=== PATIENT | female | born 1975 | race Caucasian/White ===

== ENCOUNTER 2022-03-31 16:00 | Emergency (ER) | payer BC ==
[~2022-03-31] VITALS: Ht 154.9 cm; Wt 51.0 kg
[2022-03-31 16:21] VITALS: BP 125/79
--- NOTE | 2022-03-31 16:40 | PHYS DOC ---
Past History Past Surgical History: Other Additional Past Surgical Histo: Cataracts (BHARATH COWART MD) Alcohol Use: None (BHARATH COWART MD) Adult General Chief Complaint Chief Complaint: ALTERED MENTAL STATUS HPI HPI Patient is a 47 year old female who presents to the emergency department for evaluation of altered mental status. The patient was brought by her father due to concern for confusion. The patient currently denies any complaints and states that "I don't know why I am here." The patient's father expressed concern that the patient has been confused. She was with her significant other last night which the patient confirms. She states that they ate dinner and watch the movie. She states she came back to her parents home this morning at 0400. Patient denied any use of drugs or alcohol. The patient again states "I do not know why I am here." The patient's parents were then interviewed. They state that over the past 6 months the patient has been having worsening symptoms of confusion. They state that the patient is very repetitive in her speech and asks the same question to them multiple times. The patient recently lost her job 6 months ago and they state that they think this has factored into her recent change in mental status. They state they have been trying to secure an outpatient psychiatric services but states that currently they are on a waiting list to have the patient [facility]. Mother states that the patient at times will pull her hair out and will smack her head when she is upset, however they do state that the patient does not voice any thoughts of suicide and has never voiced any physical threats or harm to either of her parents. They state because this has been going on so long they have become very upset with her behavior and thus have brought her to the emergency d epartment today for evaluation to see if she is in need of inpatient psychiatric care. (BHARATH COWART MD) Review of Systems Review of Systems Constitutional: Denies fever or chills [] Eyes: Denies change in visual acuity, redness, or eye pain [] HENT: Denies nasal congestion or sore throat [] Respiratory: Denies cough or shortness of breath [] Cardiovascular: Denies chest pain or edema [] GI: Denies abdominal pain, nausea, vomiting, bloody stools or diarrhea [] : Denies dysuria or hematuria [] Musculoskeletal: Denies back pain or joint pain [] Integument: Denies rash or skin lesions [] Neurologic: Denies headache, focal weakness or sensory changes [] All other systems were reviewed and found to be within normal limits, except as documented in this note. (BHARATH COWART MD) Physical Exam Physical Exam Constitutional: Alert, afebrile, no acute distress. [] HENT: Normocephalic, atraumatic, bilateral external ears normal, oropharynx moist, no oral exudates, nose normal. [] Eyes: PERRLA, EOMI, conjunctiva normal, no discharge. [] Neck: Normal range of motion, no tenderness, supple, no stridor. [] Cardiovascular:Heart rate regular rhythm, no murmur [] Lungs & Thorax: Bilateral breath sounds clear to auscultation [] Abdomen: Bowel sounds normal, soft, no tenderness, no masses, no pulsatile masses. [] Skin: Warm, dry, no erythema, no rash. [] Back: No tenderness, no CVA tenderness. [] Extremities: No tenderness, no cyanosis, no clubbing, ROM intact, no edema. [] Neurologic: Alert and oriented X 3, normal motor function, normal sensory function, no focal deficits noted. [] Psychologic: Affect flat, intermittent phrase repetition "I do not know why I am here," judgement normal, mood normal, cooperative, denies suicidal or homicidal ideation. [] (BHARATH COWART MD) Current Patient Data Vital Signs Vital Signs Date Time Temp Pulse Resp B/P (MAP) Pulse Ox O2 Delivery O2 Flow Rate FiO2 03/31/22 16:21 97.8 109 16 125/79 (94) 98 Room Air Lab Results Laboratory Tests Test 03/31/22 16:35 White Blood Count 5.4 x10^3/uL Red Blood Count 4.48 x10^6/uL Hemoglobin 13.7 g/dL Hematocrit 40.9 % Mean Corpuscular Volume 92 fL Mean Corpuscular Hemoglobin 31 pg Mean Corpuscular Hemoglobin Concent 33 g/dL Red Cell Distribution Width 16.3 % Platelet Count 257 x10^3/uL Neutrophils (%) (Auto) 47 % Lymphocytes (%) (Auto) 37 % Monocytes (%) (Auto) 9 % Eosinophils (%) (Auto) 5 % Basophils (%) (Auto) 1 % Neutrophils # (Auto) 2.5 x10^3uL Lymphocytes # (Auto) 2.0 x10^3/uL Monocytes # (Auto) 0.5 x10^3/uL Eosinophils # (Auto) 0.3 x10^3/uL Basophils # (Auto) 0.1 x10^3/uL Urine Collection Type Clean catch Urine Color Yellow Urine Clarity Clear Urine pH 6.0 Urine Specific Sturgeon 1.020 Urine Protein Neg Urine Glucose (UA) Neg mg/dL Urine Ketones (Stick) Neg mg/dL Urine Blood Neg Urine Nitrite Neg Urine Bilirubin Neg Urine Urobilinogen Dipstick 0.2 mg/dL Urine Leukocyte Esterase Neg Urine RBC 0 /HPF Urine WBC 0 /HPF Urine Squamous Epithelial Cells Occ /LPF Urine Bacteria 0 /HPF Sodium Level 140 mmol/L Potassium Level 3.4 mmol/L Chloride Level 104 mmol/L Carbon Dioxide Level 26 mmol/L Anion Gap 10 Blood Urea Nitrogen 18 mg/dL Creatinine 1.0 mg/dL Estimated GFR (Cockcroft-Gault) 59.2 BUN/Creatinine Ratio 18 Glucose Level 93 mg/dL Calcium Level 9.3 mg/dL Magnesium Level 2.3 mg/dL Total Bilirubin 0.2 mg/dL Aspartate Amino Transf (AST/SGOT) 20 U/L Alanine Aminotransferase (ALT/SGPT) 21 U/L Alkaline Phosphatase 80 U/L Total Protein 6.9 g/dL Albumin 3.8 g/dL Albumin/Globulin Ratio 1.2 Urine Opiates Screen Neg Urine Methadone Screen Neg Urine Barbiturates Neg Urine Phencyclidine Screen Neg Urine Amphetamine/Methamphetamine Neg Urine Benzodiazepines Screen Pos Urine Cocaine Screen Neg Urine Cannabinoids Screen Neg Ethyl Alcohol Level < 10 mg/dL Urine Ethyl Alcohol Pos (BHRAATH COWART MD) EKG EKG Not performed [] (BHARATH COWART MD) Radiology/Procedures Radiology/Procedures Not performed [] (BHARATH COWART MD) Heart Score C/O Chest Pain: No Risk Factors: Risk Factors: DM, Current or recent (<one month) smoker, HTN, HLP, family history of CAD, obesity. Risk Scores: Risk Factors: DM, Current or recent (<one month) smoker, HTN, HLP, family history of CAD, obesity. (BHARATH COWART MD) Course & Med Decision Making Course & Med Decision Making Pertinent Labs and Imaging studies reviewed. (See chart for details) Patient's blood work and urinalysis was reviewed. Patient was found to be p ositive for benzodiazepines which she currently uses by prescription. Urine registered positive for alcohol however patient's alcohol level was less than 10. This is likely a false positive. The patient's lab work otherwise shows no other acute medical causes for change in mental status. Given concern by parents regarding patient's mental status as pertaining to the past several months, I have asked PAT team to screen this patient in the emergency department. [] (BHARATH COWART MD) Course & Med Decision Making See Brian Munoz chart for details prior shift change. See PAT evaluation. Pt. discharge with parents and safety plan. Patient will follow up with counseling. Return if any concerns. Impression: 1. Altered mental status 2. Alcohol and benzodiazepines use (SEBASTIÁN GREENE MD) Dragon Disclaimer Dragon Disclaimer This electronic medical record was generated, in whole or in part, using a voice recognition dictation system. (BHARATH COWART MD) Departure Departure: Impression: Primary Impression: Unusual change in behavior Referrals: FAN FAY (PCP) Dragon Disclaimer This chart was dictated in whole or in part using Voice Recognition software in a busy, high-work load, and often noisy Emergency Department environment. It may contain unintended and wholly unrecognized errors or omissions. (SEBASTIÁN GREENE MD) BHARATH COWART MD March 31, 2022 16:40 SEBASTIÁN GREENE MD March 31, 2022 18:28
[2022-03-31 16:58] LABS: BASO # 0.1 x10^3/uL (0.0-0.2); BASO % 1 % (0-3); EOS # 0.3 x10^3/uL (0.0-0.7); EOS % 5 % (0-3); HEMATOCRIT 40.9 % (36.0-47.0); HEMOGLOBIN 13.7 g/dL (12.0-15.5); LYMPH % 37 % (24-48); MEAN CORPUSCULAR HEMOGLOBIN 31 pg (25-35); MEAN CORPUSCULAR HGB CONC 33 g/dL (31-37); MEAN CORPUSCULAR VOLUME 92 fL (79-100); MONO # 0.5 x10^3/uL (0.0-1.1); MONO % 9 % (0-9); NEUT # 2.5 x10^3uL (1.8-7.7); NEUT % 47 % (31-73); PLATELET COUNT 257 x10^3/uL (140-400); RED BLOOD COUNT 4.48 x10^6/uL (3.50-5.40); RED CELL DISTRIBUTION WIDTH 16.3 % (11.5-14.5); WHITE BLOOD COUNT 5.4 x10^3/uL (4.0-11.0)
[2022-03-31 17:07] LABS: CALCIUM 9.3 mg/dL (8.5-10.1); GFR 59.2; POTASSIUM 3.4 mmol/L (3.5-5.1)
[2022-03-31 17:09] LABS: BACTERIA,URINE 0 /HPF (0-FEW); CLARITY,URINE CLEAR; COLOR,URINE YELLOW; GLUCOSE,URINE NEG (NEG); NITRITE,URINE NEG (NEG); RBC,URINE 0 /HPF (0-2); UROBILINOGEN,URINE 0.2 mg/dL (0.2 mg/dL); WBC,URINE 0 /HPF (0-4)
[2022-03-31 17:10] LABS: SQUAMOUS EPITHELIAL CELL,UR OCC /LPF
[2022-03-31 17:12] LABS: ALBUMIN 3.8 g/dL (3.4-5.0); ALBUMIN/GLOBULIN RATIO 1.2 (1.0-1.7); MAGNESIUM 2.3 mg/dL (1.8-2.4); TOTAL BILIRUBIN 0.2 mg/dL (0.2-1.0); TOTAL PROTEIN 6.9 g/dL (6.4-8.2)
[2022-03-31 17:15] LABS: BARBITURATES NEG (NEG); BENZODIAZEPINES POS (NEG); CANNABINOIDS NEG (NEG); COCAINE NEG (NEG); METHADONE NEG (NEG); OPIATES NEG (NEG); PHENCYCLIDINE NEG (NEG)
[2022-03-31 17:17] LABS: AMPHETAMINE/METHAMPHETAMINE NEG (NEG)
== END 2022-03-31 19:30 | disposition home or self-care (01) ==
LOC: ER 16:00
DX: R41.82 Altered mental status, unspecified (principal); F10.10 Alcohol abuse, uncomplicated; F19.90 Other psychoactive substance use, unspecified, uncomplicated; Y90.0 Blood alcohol level of less than 20 mg/100 ml
CPT/HCPCS: 36415; 80053; 80307; 81001; 83735; 84443; 85025; 99283; G0480